=== PATIENT | male | born 1960 | race American Indian/Alaskan Native ===

== ENCOUNTER 2017-12-08 07:48 | Day surgery (SDC) | payer BC ==
[2017-12-07 09:27] VITALS: BMI 38.5
[2017-12-08] MEDS ORDERED: Lactated Ringer's 1,000 ML IV ONE (10:14)
[2017-12-08] MEDS ORDERED: Propofol 10 mg/ml Inj (20 ML) ONE (10:14)
[2017-12-08 10:59] VITALS: TEMP 97.8
[2017-12-08 11:05] VITALS: O2SAT 100
[2017-12-08 12:04] VITALS: BP 112/67; PULSE 77; RESP 17
== END 2017-12-08 11:45 | disposition home or self-care (01) ==
LOC: C.ENDO 07:48
PROVIDERS: ATTEND Internal Medicine Gastroenterology
DX: Z12.11 Encounter for screening for malignant neoplasm of colon (principal); K57.30 Diverticulosis of large intestine without perforation or abscess without bleeding; K64.8 Other hemorrhoids
CPT/HCPCS: 45378; 82948; J2704; J7120